=== PATIENT | female | born 1990 | race Caucasian/White ===

== ENCOUNTER → 2016-09-29 | Outpatient (CLI) | payer OTHER ==
--- NOTE | 2016-09-29 12:28 | REP ---
RENAL AND BLADDER ULTRASOUND: Real-time sonographic evaluation of the kidneys performed and demonstrates both kidneys to be normal in size and echotexture, right kidney measuring 11.9 x 5.3 x 5.1 cm and the left kidney 11.8 x 5.7 x 7.1 cm. There is mild right hydronephrosis. There is no left hydronephrosis. No renal mass or cyst is seen. The urinary bladder is mildly distended with no gross mass or calculus. The patient is and the heart rate is 128 beats per minute. IMPRESSION: Mild right hydronephrosis. No left hydronephrosis. No renal cyst identified. Signed by Jaec Márquez MD 09/29/2016 05:22 P
== END ==
LOC: M RAD 10:53
PROVIDERS: ATTEND Obstetrics & Gynecology Maternal & Fetal Medicine
DX: O35.8XX0 Maternal care for other (suspected) fetal abnormality and damage, not applicable or unspecified (principal); N13.30 Unspecified hydronephrosis

== ENCOUNTER 2018-09-21 21:25 | Inpatient (IN) | payer OTHER ==
[~2018-09-21] VITALS: Ht 172.7 cm; Wt 82.8 kg
[2018-09-21] MEDS ORDERED: PRENTAB9 PO (21:41)
[2018-09-21 21:46] VITALS: BP 126/81
[2018-09-21] MEDS ORDERED: LR 1,000 ML IV SCH (22:51)
[2018-09-21] MEDS ORDERED: LACTATED RINGER'S 1000 ML IV STA (22:51)
--- NOTE | 2018-09-21 23:03 | HPEPDOC ---
Obstetrical History & Physical General Date of Admission History of Present Illness 27 yo at 40+1 weeks gestation by LMP of [id number] c/w 8+0 week US on [id number] presents to L&D with regular, painful contractions. Also endorses some brown vaginal discharge. Denies any leakage of fluid. is uncomplicated. Chief Complaint: Contractions, term Information Provided By: Patient Age: 27 : 2 Term: 1 Pre-term: 0 Abortions: 0 Livin Care Care: Good Care Dating Final EDC: Sep 20, 2018 Final EDC for Daily Update: Sep 20, 2018 Final EDC by: LMP LMP: December 14, 2017 1st Trimester Date: Feb 06, 2018 Antepartum Course Diagnos(e)s Mild thyromegaly at first OB appointment ---> normal thyroid labs First child born with polycystic kidneys --> sporadic mutation, parents have undergone testing and are negative. Past Medical History Past Obstetrical History : Past Obstetrical History: Multigravida Type of Delivery: Spontaneous Vaginal Del. (Pelvis proven to 7lbs 12oz) Sex of : Female [employer] History: No pertinent history Past Medical History Medical History Denies Surgical History: Denies/None Family History Significant Family History: No pertinent family hx Family History Noncontributory Social History Marital Status: Family situation: Spouse/partner home Psychosocial History: No pertinent psych hx * Smoker: non-smoker Alcohol: Denies Drugs: denies Imunizations Tdap status: current Influenza Status: current Allergies Coded Allergies: No Known Allergies (Unverified , 09/21/18) Medications Scheduled Multivitamins/ ( 27-0.8 mg) 1 Tab Tab, 1 TAB PO DAILY Physical Examination Physical Examination GENERAL: Alert and oriented times three. Tearful and crying with contractions. ABDOMEN: Gravid and non-tender to touch. FETUS: Is vertex (VTX) by sterile vaginal examination (SVE) EXTREMITIES: No edema. Vital Signs/I&O Vital Signs Date Time Temp Pulse Resp B/P (MAP) Pulse Ox O2 Delivery O2 Flow Rate FiO2 09/21/18 21:46 98.9 106 16 126/81 (96) Laboratory Data Urine Culture: No Growth Pertinent Laboratoy Data Blood Type: O+ RBC Antibody Screen: Negative HIV: Negative Hepatitis B: Negative Hepatitis C: Unknown Rapid Plasma Reagin: Nonreactive Rubella: Immune Varicella: Immune Chlamydia/Gonorrhea: Negative Group B Streptococcus: Negative Quad Screen Test: Declined Cystic Fibrosis: Negative Glucose Tolerance Test: 95 Anatomy Ultrasound Placenta Location: Posterior Normal Anatomy: Yes Placenta Previa: No Steroid Therapy Steroid Therapy: No Vaginal Examination Dilation: 3 cm Effacement: 80% Station: -2 Cervical Consistency: Soft Cervical Position: Middle Presentation: Cephalic presentation Position: Vertex (occiput) Assessment Heart Rate (FHR): 130 Variability: Moderate Accelerations: Positive Decelerations: None Tocometer Contractions: Yes Frequency: regular Duration: greater than 60 seconds Strength: palpated as moderate Assessment/Plan Assessment 27 yo at 40+1 weeks gestation presented in early labor. Uncomplicated . Plan Admit for expectant management of labor. Will augment as clinically indicated. Apply IV fluids. GBS negative. Clear liquid diet. Patient may have epidural if desired. Anticipate . DO KETAN Hobbs CHRISTOPHER J. DO Sep 21, 2018 23:03
[2018-09-21 23:18] LABS: BASO % 0.3 % (0.0-1.0); EOS # 0.1 10^3/uL (0.0-0.50); EOS % 0.3 % (0.0-3.0); HEMATOCRIT 39.9 % (36.0-47.0); HEMOGLOBIN 13.9 g/dl (12.0-15.5); LYMPH # 2.3 10^3/uL (1.5-6.5); LYMPH % 15.7 % (24.0-44.0); MEAN CORPUSCULAR HEMOGLOBIN 32.8 pg (27.0-33.0); MEAN CORPUSCULAR HGB CONC 34.8 g/dl (32.0-36.5); MEAN CORPUSCULAR VOLUME 94.1 fl (80.0-96.0); NEUTROPHILS # 11.1 10^3/uL (1.8-7.7); NEUTROPHILS % 75.9 % (36.0-66.0); PLATELET COUNT, AUTOMATED 136 10^3/uL (150-450); RED BLOOD COUNT 4.24 10^6/uL (4.00-5.40); WHITE BLOOD COUNT 14.6 10^3/uL (4.0-10.0)
[2018-09-21] MEDS ORDERED: FENTANYL 2MCG/ML ROPIVACAINE 0.2% IN 0.9% NACL 100ML IVBAG As Ordered ONE (23:48)
[2018-09-21 23:54] VITALS: BP 126/78
[2018-09-22] VITALS (41 sets, daily range): BP systolic 90–140; BP diastolic 51–80
[2018-09-22] MEDS ORDERED: EPIDURAL COMMENT XX SCH (00:15)
[2018-09-22] MEDS ORDERED: FENTANYL/ROPIVACAINE/NACL BAG 100 ML EPIDURAL SCH (00:15)
[2018-09-22] MEDS ORDERED: REFRIGERATOR IV KEYS XX PRN (00:15)
[2018-09-22] MEDS ORDERED: LACTATED RINGER'S 1000 ML IV PRN (00:15)
[2018-09-22] MEDS ORDERED: EPIDURAL/PCA KEYS XX PRN (00:15)
[2018-09-22] MEDS ORDERED: NALOXONE INJ 0.4 MG/1 ML VIAL (J2310) IV PRN (00:15)
[2018-09-22] MEDS ORDERED: diphenhydrAMINE INJ 50MG/ML VIAL (J1200) IV PRN (00:15)
[2018-09-22] MEDS ORDERED: ePHEDrine SULFATE 25 MG/5 ML(5MG/ML) SYRINGE IV PRN (00:15)
[2018-09-22] MEDS ORDERED: ONDANSETRON 4MG/2ML VIAL (J2405) IV PRN ×2 (00:15→04:30)
[2018-09-22] MEDS ORDERED: OXYTOCIN 30 UNITS IN 0.9% NaCl 500ML IV BAG (J2590) As Ordered ONE (03:51)
[2018-09-22] MEDS ORDERED: OXYTOCIN DRIP 30 UNITS in APPROPRIATE DILUENT 1 EA IV SCH (04:16)
--- NOTE | 2018-09-22 04:22 | DNPDOC ---
[facility] Delivery Note Delivery Note DATE OF DELIVERY: 22Sep2018 at ~0400 PREDELIVERY DIAGNOSIS: 40+2 weeks gestation and labor POST DELIVERY DIAGNOSIS: Delivered. PROCEDURE: Spontaneous vaginal delivery RADIO MAINTAINER: Dr. Lindo ANESTHESIA: Neuraxial. ESTIMATED BLOOD LOSS: 200 mL. FINDINGS: 8 pound 15 ounce male , Score 9/9 DELIVERY SUMMARY: Roxana progressed to fully dilated and I presented to the room for assessment. AROM performed productive of a copious amount of clear fluid. The bed was broken down and she was prepped for delivery. With excellent pushing effort over about 20 minutes her delivered. Presentation was direct OP. The shoulders delivered easily followed by the remainder of the body. The was dried and stimulated on the field and a bulb suction was used. The infant cried vigorously and was placed on the maternal abdomen. The three vessel cord was then clamped and cut by the FOB. 3rd stage was spontaneous and it was productive of an intact placenta. The uterine fundus was firmed with massage and pitocin was administered IV bolus. Inspection of the vagina and perineum revealed a small first degree vaginal floor laceration that was repaired with 3-0 and 4-0 vicryl sutures in the usual fashion. There was excellent hemostasis and cosmesis after the repair. The fundus was palpated again and was firm. Sponge, instrument, and needle counts were correct X2. Mother stable when I left the room. DO KETAN Hobbs CHRISTOPHER J. DO Sep 22, 2018 04:22
[2018-09-22] MEDS ORDERED: RHOGAM 300 MCG (1500 IU) INJ (J2790) IM SCH (04:30)
[2018-09-22] MEDS ORDERED: DIBUCAINE 1% OINTMENT 30GM TOP PRN (04:30)
[2018-09-22] MEDS ORDERED: MEASLES,MUMPS,RUBELLA VACCINE INJ (MMR-II) (90707) SC SCH (04:30)
[2018-09-22] MEDS ORDERED: DOCUSATE SODIUM 100 MG CAP PO PRN (04:30)
[2018-09-22] MEDS: IBUPROFEN 800 MG TAB PO PRN ×3 (05:34→22:45)
[2018-09-22] MEDS: PRENATAL VITAMINS CHEWABLE TABLET PO SCH (08:11)
[2018-09-22] MEDS: ACETAMINOPHEN 500 MG TAB PO PRN ×3 (08:12→20:13)
[2018-09-23 06:28] VITALS: BP 112/61
[2018-09-23] MEDS: PRENATAL VITAMINS CHEWABLE TABLET PO SCH (08:38)
[2018-09-23] MEDS ORDERED: MAPA500T2 PO (10:08)
[2018-09-23] MEDS ORDERED: IBUP-1114 PO (10:09)
[2018-09-23] MEDS ORDERED: COLA100C5 PO (10:10)
== END 2018-09-23 18:30 | disposition home or self-care (01) | DRG 807 ==
LOC: M LDO 21:25 → M LDI 22:56 → M OBS 09-22 15:50
PROVIDERS: ADMIT Obstetrics & Gynecology; ATTEND Obstetrics & Gynecology
PROC: 10E0XZZ Delivery of Products of Conception, External Approach (ICD-10-PCS; principal; 2018-09-22)
PROC: 10907ZC Drainage of Amniotic Fluid, Therapeutic from Products of Conception, Via Natural or Artificial Opening (ICD-10-PCS; 2018-09-22)
PROC: 0HQ9XZZ Repair Perineum Skin, External Approach (ICD-10-PCS; 2018-09-22)
DX: O48.0 Post-term pregnancy (principal); Z37.0 Single live birth; Z3A.40 40 weeks gestation of pregnancy; O70.0 First degree perineal laceration during delivery

== ENCOUNTER 2018-10-26 12:52 | Day surgery (SDC) | payer OTHER ==
[~2018-10-26] VITALS: Ht 172.7 cm; Wt 69.9 kg
[~2018-10-26 12:52] MED LIST: COLA100C5 PO; IBUP-1114 PO; MAPA500T2 PO; PRENTAB9 PO
[2018-10-26] MEDS ORDERED: LR 1,000 ML IV SCH ×2 (13:15→18:45)
[2018-10-26 13:27] LABS: HEMATOCRIT 41.5 % (36.0-47.0); HEMOGLOBIN 14.1 g/dl (12.0-15.5); MEAN CORPUSCULAR HEMOGLOBIN 31.5 pg (27.0-33.0); MEAN CORPUSCULAR VOLUME 92.6 fl (80.0-96.0); PLATELET COUNT, AUTOMATED 157 10^3/uL (150-450); RED BLOOD COUNT 4.48 10^6/uL (4.00-5.40); WHITE BLOOD COUNT 9.6 10^3/uL (4.0-10.0)
[2018-10-26] MEDS ORDERED: SILVER NITRATE APPLICATOR As Ordered ONE ×2 (14:23→18:27)
[2018-10-26] MEDS ORDERED: LIDOCAINE 1% SDV INJ 30 ML VIAL As Ordered ONE (14:24)
[2018-10-26] MEDS ORDERED: LIDOCAINE 2% INJ 100 MG/5 ML SDV (FOR ANES.) As Ordered ONE (17:13)
[2018-10-26] MEDS ORDERED: ONDANSETRON 4MG/2ML VIAL (J2405) As Ordered ONE (17:13)
[2018-10-26] MEDS ORDERED: PROPOFOL 200 MG/20 ML VIAL As Ordered ONE (17:13)
[2018-10-26] MEDS ORDERED: dexameTHASONE 4 MG/ML 1ML VIAL (J1100) As Ordered ONE ×2 (17:13→17:17)
[2018-10-26] MEDS ORDERED: MIDAZOLAM INJ 2 MG/2 ML VIAL (J2250) As Ordered ONE (17:13)
[2018-10-26] MEDS ORDERED: fentaNYL 100 MCG/2 ML INJECTION (J3010) As Ordered ONE (17:14)
[2018-10-26] MEDS ORDERED: fentaNYL 100 MCG/2 ML INJECTION (J3010) IV PRN (18:45)
[2018-10-26] MEDS ORDERED: NORCO, ANEXSIA 5/325MG TABLET (HYDROcodone/ACETAMINOPHEN) PO PRN (18:45)
[2018-10-26] MEDS ORDERED: ONDANSETRON 4MG/2ML VIAL (J2405) IV PRN (18:45)
[2018-10-26 19:35] VITALS: BP 110/66
--- NOTE | 2018-10-27 14:05 | RO ---
DATE OF PROCEDURE: 10/26/2018 PREOPERATIVE DIAGNOSIS: Retained products of conception four weeks post normal spontaneous vaginal delivery. POSTOPERATIVE DIAGNOSIS: Retained products of conception four weeks post normal spontaneous vaginal delivery. PROCEDURE: Suction dilation and curettage SURGEON: Dr. Jace Kelly ANESTHESIA: General with LMA. ESTIMATED BLOOD LOSS: 10 mL DRAINS: None. SPECIMENS: Retained products conception. FLUIDS REPLACED: 800 mL of lactated Ringer's. PREOPERATIVE ANTIBIOTICS: None. FINDINGS: Obvious retained products after a paracervical block with 10 mL of 1% lidocaine. Ultrasound confirmed removal of the retained placental fragments and also confirmed correct instrument placement and no perforation throughout the case. DESCRIPTION OF OPERATION: The patient was taken to the operating room and general anesthesia was easily obtained. She was then placed in the lithotomy position without difficulty. An exam under anesthesia was performed which showed a retroverted uterus. With bedside ultrasound, I confirmed that I could see the uterus and she was then prepped and draped. The ultrasound transducer was placed on her abdomen so I could manipulate the transducer through the surgical drape. I placed a speculum in the vagina, isolated the cervix and grasped it on the anterior lip with a single tooth tenaculum and injected 10 mL of 1% lidocaine to 2, 4, 8 and 10 without difficulty. I then sequentially dilated the cervix enough to admit an 8 curved suction curet. I placed this into the endometrial cavity very carefully and then evaluated the placement with the ultrasound and noted how far it would go at the opening of the cervix in order to not ever go past that point due to her high risk of perforation. I then gently spun and with in and out motions removed some blood and loose tissue as well that went through the suction tubing. I then sharply curetted the intrauterine cavity without difficulty and reintroduced catheter removing some further small pieces of tissue. I then rescanned the uterus abdominally and confirmed that the 2 cm piece of tissue that was there previously was now removed successfully. The tenaculum was removed from the anterior lip of the cervix. A small amount of silver nitrate was used to obtain hemostasis from all the puncture sites to the cervix and all instruments were removed from vagina. The patient was then awakened from general anesthesia and transferred to the postanesthesia care unit (PACU) in stable condition. All counts were correct. ERICAD
== END 2018-10-26 19:35 | disposition home or self-care (01) ==
LOC: M SDC 12:52
PROVIDERS: ATTEND Obstetrics & Gynecology
DX: O73.1 Retained portions of placenta and membranes, without hemorrhage (principal)
CPT/HCPCS: 36415; 59160; 85027; 86850; 86900; 86901; 88305; J1100; J2250; J2405; J3010